=== PATIENT | female | born 1995 | race Caucasian/White ===

== ENCOUNTER 2023-09-03 08:34 | Emergency (ER) | payer MEDICAID ==
[~2023-09-03] VITALS: Ht 162.6 cm; Wt 97.8 kg
[~2023-09-03 08:34] MED LIST: ALBU18; BECL0.07; CARI250T
[2023-09-03 09:16] VITALS: BP 117/76; PULSE 86; RESP 15; TEMP 97.5; O2SAT 98
[2023-09-03] MEDS ORDERED: MORPHINE SULFATE 4 MG/ML SYR/VIAL IM ONE (09:45)
[2023-09-03] MEDS: ONDANSETRON ODT 4 MG TAB PO ONE (10:00)
== END 2023-09-03 10:14 | disposition home or self-care (01) ==
LOC: ER 08:34
DX: O26.891 Other specified pregnancy related conditions, first trimester (principal); M54.6 Pain in thoracic spine; G89.29 Other chronic pain; Z88.6 Allergy status to analgesic agent; Z3A.01 Less than 8 weeks gestation of pregnancy
CPT/HCPCS: 99283; Q0162